=== PATIENT | male | born 1995 | race Caucasian/White ===

== ENCOUNTER 2018-01-18 19:08 | Emergency (ER) | payer OTHER ==
[~2018-01-18] VITALS: Ht 172.7 cm; Wt 77.6 kg
[2018-01-18 19:15] VITALS: BP 137/83
--- NOTE | 2018-01-18 19:20 | NUR ---
PT ASSISTED BACK TO LOBBY
--- NOTE | 2018-01-18 19:35 | NUR ---
PT AMBULATED TO ER BED 09
--- NOTE | 2018-01-18 19:42 | NUR ---
PATIENT PRESENTS TO ED WITH C/O COUGH, SORE THROAT, FATIGUE AND ABD PAIN X 5 DAYS. REPORTS N/V, FEVER AND CHILLS PT SKIN IS PINK/WARM/DRY; AAOX4 WITH EVEN AND STEADY GAIT; LUNGS CLEAR BL; HR EVEN AND REGULAR; PT DENIES ANY FEVER, CP OR SOB AT THIS TIME; PATIENT STATES PAIN OF 8/10 AT THIS TIME; VSS; PATIENT POSITIONED FOR COMFORT; HOB ELEVATED; BEDRAILS UP X2; BED DOWN. ER MD MADE AWARE OF PT STATUS.
[2018-01-18] MEDS ORDERED: NACL 0.9% 1,000 ML IV SCH (20:11)
[2018-01-18] MEDS ORDERED: ONDANSETRON 4 MG/2 ML VIAL IVP ONE (20:15)
[2018-01-18] MEDS ORDERED: MORPHINE SULFATE 2 MG/ML SYR IVP ONE (20:15)
[2018-01-18 20:45] LABS: HEMATOCRIT 45.4 % (36-52); HEMOGLOBIN 15.1 g/dL (12.0-18.0); MEAN CORPUSCULAR HEMOGLOBIN 28 pg (27-31); MEAN CORPUSCULAR HGB CONC 33 g/dL (33-37); MEAN CORPUSCULAR VOLUME 85.7 fL (80-94); PLATELET COUNT (AUTO) 292 K/uL (140-450); RED CELL DISTRIBUTION WIDTH 13.1 % (11.6-13.7); WHITE BLOOD COUNT (AUTO) 5.8 K/uL (4.8-10.8)
[2018-01-18 20:52] LABS: LYMPHOCYTES % (MANUAL) 16 % (20-46); MONOCYTES % (MANUAL) 14 % (5-12)
[2018-01-18 20:57] LABS: APPEARANCE,URINE CLEAR (CLEAR); BILIRUBIN,URINE NEGATIVE (NEGATIVE); BLOOD, URINE NEGATIVE (NEGATIVE); COLOR,URINE YELLOW (YELLOW); LEUKOCYTE ESTERASE ,URINE NEGATIVE (NEGATIVE); NITRITE, URINE NEGATIVE (NEGATIVE); UGLUCOSE NEGATIVE (NEGATIVE)
[2018-01-18 21:00] LABS: ALBUMIN 3.7 g/dL (3.4-5.0); ANION GAP 11.8 (8-16); CARBON DIOXIDE 28.7 mmol/L (21-32); CREATININE 0.9 mg/dL (0.7-1.3); POTASSIUM 3.5 mmol/L (3.5-5.1); TOTAL BILIRUBIN 0.4 mg/dL (0.0-1.0)
[2018-01-18 21:20] LABS: RBC,URINE 0-5 (RARE) /HPF (0-5); WBC,URINE 0-5 (RARE) /HPF (0-5)
--- NOTE | 2018-01-18 21:20 | NUR ---
PT SENT TO CT WITH TECH VIA BED AAOX4 AT THIS TIME.
--- NOTE | 2018-01-18 21:22 | NUR ---
PT TAKEN TO CT
--- NOTE | 2018-01-18 21:34 | NUR ---
PT BACK FROM CT, AAOX4 AT THIS TIME.
--- NOTE | 2018-01-18 22:02 | NUR ---
PT ON STRETCHER, FAMILY AT BEDSIDE, NO ACUTE DISTRESS NOTED. NO IDENTIFIED REQUESTS.
--- NOTE | 2018-01-18 22:42 | NUR ---
WAITING FOR ER MD DR AUSTIN DISCHARGE INSTRUCTIONS AND ANY PRESCRIPTIONS.
--- NOTE | 2018-01-18 22:50 | NUR ---
AWAITING DISCHARGE PAPERWORK FROM DR. VILLALBA
[2018-01-18 22:57] VITALS: BP 103/63
--- NOTE | 2018-01-18 22:57 | NUR ---
Patient discharged with v/s stable. Written and verbal after care instructions given and explained. Patient alert, oriented and verbalized understanding of instructions. Ambulatory with steady gait. All questions addressed prior to discharge. ID band removed. Patient advised to follow up with PMD. Rx of ROBITUSSIN AND IBUPROFEN given. Patient educated on indication of medication including possible reaction and side effects. Opportunity to ask questions provided and answered.
== END 2018-01-18 22:57 | disposition home or self-care (01) ==
LOC: MED 19:08
DX: J40 Bronchitis, not specified as acute or chronic (principal); R10.9 Unspecified abdominal pain; R51 Headache; Z85.47 Personal history of malignant neoplasm of testis
CPT/HCPCS: 36415; 71260; 74177; 80053; 81001; 83690; 85025; 96361; 96374; 96375; 99285; J2270; J2405; Q9967

== ENCOUNTER 2018-10-16 15:19 | Emergency (ER) | payer OTHER ==
[~2018-10-16] VITALS: Ht 172.7 cm; Wt 81.9 kg
[2018-10-16 15:30] VITALS: BP 117/89
--- NOTE | 2018-10-16 15:43 | NUR ---
PT TO ER BED 3
--- NOTE | 2018-10-16 15:50 | NUR ---
PATIENT PRESENTS TO ED WITH C/O EPIGASTRIC PAIN RADIATING TO THE BACK X 2 DAYS WITH VOMITING X1 TODAY. TOOK TRAMADOL WITH NO RELIEF. 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 AAOX4 WITH EVEN AND STEADY GAIT; LUNGS CLEAR BL; HR EVEN AND REGULAR; PT DENIES ANY FEVER, CP, SOB, OR COUGH AT THIS TIME; PATIENT STATES EPIGASTRIC PAIN OF 8/10 AT THIS TIME; VSS; PATIENT POSITIONED FOR COMFORT; HOB ELEVATED; BEDRAILS UP X2; BED DOWN. ER MD MADE AWARE OF PT STATUS.
[2018-10-16 16:28] LABS: BASOPHILS % (AUTO) 0.1 % (0.0-2.0); HEMATOCRIT 48.2 % (36-52); HEMOGLOBIN 16.2 g/dL (12.0-18.0); LYMPHOCYTES # (AUTO) 0.5 K/uL (2.0-11.5); MEAN CORPUSCULAR HEMOGLOBIN 29 pg (27-31); MEAN CORPUSCULAR HGB CONC 34 g/dL (33-37); MONOCYTES # (AUTO) 0.4 K/uL (0.8-1.0); NEUTROPHILS % (AUTO) 90.9 % (42.2-75.2); PLATELET COUNT (AUTO) 344 K/uL (140-450); RED BLOOD CELL COUNT(AUTO) 5.67 MIL/uL (4.20-6.10); RED CELL DISTRIBUTION WIDTH 14.1 % (11.6-13.7); WHITE BLOOD COUNT (AUTO) 9.9 K/uL (4.8-10.8)
[2018-10-16] MEDS ORDERED: NACL 0.9% 1,000 ML IV SCH (16:36)
[2018-10-16] MEDS ORDERED: LACTATED RINGERS 1,000 ML IV ONE (16:40)
[2018-10-16] MEDS ORDERED: ONDANSETRON 4 MG/2 ML VIAL IVP ONE (16:40)
[2018-10-16] MEDS ORDERED: FAMOTIDINE 20 MG/2 ML VIAL IVP ONE (16:40)
[2018-10-16] MEDS ORDERED: METOCLOPRAMIDE 10 MG/2 ML INJ VIAL IVP ONE (16:40)
[2018-10-16 16:48] LABS: APPEARANCE,URINE CLEAR (CLEAR); BILIRUBIN,URINE NEGATIVE (NEGATIVE); BLOOD, URINE NEGATIVE (NEGATIVE); COLOR,URINE YELLOW (YELLOW); LEUKOCYTE ESTERASE ,URINE NEGATIVE (NEGATIVE); NITRITE, URINE NEGATIVE (NEGATIVE); PH,URINE 6.5 (5.0-9.0); UGLUCOSE NEGATIVE (NEGATIVE)
--- NOTE | 2018-10-16 16:50 | NUR ---
PT IS RESTING IN BED, NO S/S OF DISTRESS, VSS.
[2018-10-16 16:53] LABS: ANION GAP 9.9 (8-16); CARBON DIOXIDE 30.3 mmol/L (21-32); CREATININE 0.8 mg/dL (0.7-1.3); POTASSIUM 4.2 mmol/L (3.5-5.1)
[2018-10-16 16:59] LABS: ALBUMIN 3.9 g/dL (3.4-5.0); TOTAL BILIRUBIN 0.7 mg/dL (0.0-1.0)
[2018-10-16] MEDS ORDERED: KETOROLAC 30 MG/ML VIAL IVP ONE (17:10)
[2018-10-16] MEDS ORDERED: DICYCLOMINE HCL LIQUID 10 MG/5 ML UDC PO ONE (17:10)
[2018-10-16] MEDS ORDERED: MORPHINE SULFATE 4 MG/ML SYR IVP ONE (17:10)
[2018-10-16 17:28] LABS: BARBITURATE, URINE NEG. ng/ml (NEG <=200); BENZODIAZEPINE, URINE NEG. ng/mL (NEG <=200); CANNABINOID, URINE POS. ng/mL (NEG <=50); COCAINE, URINE NEG. ng/mL (NEG <=300); OPIATE, URINE NEG. ng/mL (NEG <=2000); PHENCYCLIDINE SCREEN,URINE NEG. ng/mL (NEG <=25)
[2018-10-16 19:07] VITALS: BP 120/58
--- NOTE | 2018-10-16 19:07 | NUR ---
Patient discharged with v/s stable. Written and verbal after care instructions given and explained. Patient alert, oriented and verbalized understanding of instructions. Ambulatory with steady gait. All questions addressed prior to discharge. ID band removed. Patient advised to follow up with PMD. Rx of BENTYL AND REGLAN given. Patient educated on indication of medication including possible reaction and side effects. Opportunity to ask questions provided and answered.
== END 2018-10-16 19:07 | disposition home or self-care (01) ==
LOC: MED 15:19
DX: F12.988 Cannabis use, unspecified with other cannabis-induced disorder (principal); Z85.47 Personal history of malignant neoplasm of testis; Z98.890 Other specified postprocedural states; Z90.49 Acquired absence of other specified parts of digestive tract; Z90.89 Acquired absence of other organs
CPT/HCPCS: 36415; 74177; 80053; 80305; 81003; 82150; 83690; 85025; 96361; 96374; 96375; 99284; G0482; J1885; J2270; J2405; J2765; J3490; J7030; J7120; Q9967

== ENCOUNTER 2019-07-10 10:10 | Emergency (ER) | payer OTHER ==
[~2019-07-10] VITALS: Ht 175.3 cm; Wt 84.0 kg
[2019-07-10 10:15] VITALS: BP 120/73
--- NOTE | 2019-07-10 10:23 | NUR ---
Patient ambulated to bed 7. RN evaluating patient at bedside.
--- NOTE | 2019-07-10 10:25 | NUR ---
PATIENT PRESENTS TO ED WITH PENILE DISCHARGE AND DYSURIA X 1 WEEK. PT ALSO HAS EPIGASTRIC PAIN, 8/10 X 1 DAY. -FEVER, -COLDS, +COUGH. PT ADMITS TO UNPROTECTED SEX WITH 2 PARTNERS IN THE LAST 2 WEEKS. VSS; PATIENT POSITIONED FOR COMFORT; HOB ELEVATED; BEDRAILS UP X2; BED DOWN. DR JOSHUA SAW PATIENT. HX: S/P CHOLECYSTECTOMY, ST 2 TESTICULAR CANCER
[2019-07-10] MEDS ORDERED: cefTRIAXone 250 MG in LIDOCAINE MPF 1% 0.9 ML IM ONE (10:30)
[2019-07-10] MEDS ORDERED: AZITHROMYCIN 250 MG TAB PO ONE (10:30)
[2019-07-10 10:58] VITALS: BP 120/73
[2019-07-12 13:11] LABS: CHLAMYDIA TRACHOMATIS AMP DNA POSITIVE (NEGATIVE)
--- NOTE | 2019-07-12 13:26 | NUR ---
LATE ENTRY-- DR JOSHUA AWARE OF CHLAMYDIA AND GONORRHOEA. NO NEW ORDERS RECIEVED.
--- NOTE | 2019-07-12 13:29 | NUR ---
LATE ENTRY-- ATTEMPT MADE TO CONTACT PT. MESSAGE LEFT ON [employer] TO CALL ED UPON RECEIVING MSG.
== END 2019-07-10 10:55 | disposition home or self-care (01) ==
LOC: MED 10:10
DX: R30.0 Dysuria (principal); R10.9 Unspecified abdominal pain; Z20.2 Contact with and (suspected) exposure to infections with a predominantly sexual mode of transmission; Z90.49 Acquired absence of other specified parts of digestive tract; Z98.890 Other specified postprocedural states; Z85.47 Personal history of malignant neoplasm of testis
CPT/HCPCS: 36415; 87491; 96372; 99283; J0696; J2001